=== PATIENT | female | born 1990 | race Hispanic/Latino ===

== ENCOUNTER 2017-04-21 22:58 | Emergency (ER) | payer OTHER ==
[2017-04-21 23:29] LABS: ABSOLUTE BASOPHIL COUNT 0.1 /CUMM (0.0-0.2); ABSOLUTE EOSINOPHIL COUNT 0.1 /CUMM (0.0-0.7); ABSOLUTE GRANULOCYTE CT 10.5 /CUMM (1.4-6.5); ABSOLUTE LYMPH COUNT 2.9 /CUMM (1.2-3.4); ABSOLUTE MONOCYTE COUNT 0.7 /CUMM (0.10-0.60); BASOPHIL % 0.4 % (0.0-2.0); EOSINOPHIL % 0.5 % (0-5); GRANULOCYTE % 73.7 % (42.2-75.2); HEMATOCRIT 33.1 % (37-47); MEAN CORPUSCULAR HGB 26.3 PG (27.0-31.0); MEAN CORPUSCULAR HGB CONC 32.8 G/DL (33.0-37.0); MEAN CORPUSCULAR VOLUME 80.3 FL (81.0-99.0); MEAN PLATELET VOLUME 9.3 FL (7.4-10.4); PLATELET COUNT 298 /CUMM (130-400); RBC DISTRIBUTION WIDTH 15.4 % (11.5-14.5); RED BLOOD CELL CT 4.12 /CUMM (4.20-5.40); WHITE BLOOD CELL COUNT 14.3 /CUMM (4.8-10.8)
--- NOTE | 2017-04-22 02:07 | ED CARDIAC/CP/PALPITATIONS ---
History of Present Illness General Chief Complaint: General Adult Stated Complaint: PT IS CHEST AND THROAT PAIN Source: patient Exam Limitations: no limitations Vital Signs & Intake/Output Vital Signs & Intake/Output Vital Signs Date Time Temp Pulse Resp B/P B/P Pulse O2 O2 Flow FiO2 Mean Ox Delivery Rate 04/22 0310 98.6 82 20 115/81 100 Room Air 04/22 0309 98 Room Air 04/21 2323 98.8 94 16 112/75 99 Room Air ED Intake and Output 04/22 0000 04/21 1200 Intake Total Output Total Balance Patient 170 lb Weight Weight Estimated Measurement Method Allergies Coded Allergies: No Known Allergies (04/21/17) Triage Note: 26 F WITH 2 DAYS OF GASTRIC BURNING PAIN INTO STERNUM AREA, DEEP AND SHARP IN NATURE. EKG COMPLETED IN [place], NORMAL SINUS WITHOUT ECTOPY. LABS DRAWN AND SENT (BLUE SST LAV PINK). PT REPORTS SHE IS SUPPOSED TO HAVE COLONOSCOPY AND ENDOSCOPY FOR SYMPTOMS AND ?IBS. ALSO REPORTS SHE TOOK A PREG TEST LAST WEEK AND POSITIVE. LAST MENSES SOMETIME IN DECEMBER. Triage Nurses Notes Reviewed? yes : Yes Patient currently breastfeeds: No HPI: 31 yo F presents to the ED complaining for chest pains going on for 2 days. She describes the pain as tight, pressure like, non radiating, intermittent in nature and 6/10 in severity. She denies any aggravating factors and lying down makes her feel better. She also mentions some difficulty breathing, decrease in appetite, intermittent nausea and an episode of vomitting earlier today. (SILVIANO FERNÁNDEZ MD) Past History Travel History Traveled to [place] past 21 day No Medical History Any Pertinent Medical History? see below for history Neurological: NONE EENT: NONE Cardiovascular: NONE Respiratory: NONE Gastrointestinal: irritable bowel syndrome Hepatic: NONE Renal: NONE Musculoskeletal: NONE Psychiatric: NONE Endocrine: NONE Surgical History Surgical History: non-contributory Psychosocial History What is your primary language Bulgarian Tobacco Use: Never used ETOH Use: denies use Family History Hx Contributory? No (SILVIANO FERNÁNDEZ MD) Review of Systems Review of Systems Constitutional: Reports: no symptoms. Respiratory: Reports: short of breath. Cardiovascular: Reports: chest pain. GI: Reports: abdominal pain, constipation, diarrhea. Musculoskeletal: Reports: no symptoms. (SILVIANO FERNÁNDEZ MD) Physical Exam Physical Exam General Appearance: well developed/nourished, mild distress Head: atraumatic, normal appearance Eyes: Bilateral: normal appearance. Respiratory: normal breath sounds, chest wall tenderness Cardiovascular: regular rate/rhythm Gastrointestinal: tenderness Core Measures ACS in differential dx? No Severe Sepsis Present: No Septic Shock Present: No (SILVIANO FERNÁNDEZ MD) Progress Differential Diagnosis: musculoskeletal pain Plan of Care: Orders Procedure Date/time Status Add-on Test (ER Only) 04/22 0129 Active TROPONIN LEVEL 04/21 232 Complete HUMAN BETA HCG TITRE 04/21 232 Complete COMPREHENSIVE METABOLIC PANEL 04/21 232 Complete CBC WITHOUT DIFFERENTIAL 04/21 2320 Complete EKG 04/21 2311 Active Laboratory Tests 04/21/17 2320: Anion Gap 12, Estimated GFR > 60, BUN/Creatinine Ratio 15.7, Glucose 98, Calcium 9.3, Total Bilirubin 0.5, AST 18, ALT 41, Alkaline Phosphatase 63, Troponin I < 0.01, Total Protein 7.1, Albumin 4.2, Globulin 2.9, Albumin/Globulin Ratio 1.4, Beta HCG, Quant 3840.6, CBC w Diff NO MAN DIFF REQ, RBC 4.12 L, MCV 80.3 L, MCH 26.3 L, RDW 15.4 H, MPV 9.3, Gran % 73.7, Lymphocytes % 20.3 L, Monocytes % 5.1, Eosinophils % 0.5, Basophils % 0.4, Absolute Granulocytes 10.5 H, Absolute Lymphocytes 2.9, Absolute Monocytes 0.7 H, Absolute Eosinophils 0.1, Absolute Basophils 0.1, PUBS MCHC 32.8 L Initial ED EKG: normal axis (SILVIANO FERNÁNDEZ MD) Departure Departure Disposition: HOME OR SELF CARE Condition: Stable Clinical Impression Primary Impression: Chest wall tenderness Referrals: UGO NUNEZ,JONH Alfaro (PCP/Family) Departure Forms: Customer Survey General Discharge Information (SILVIANO FERNÁNDEZ MD) PA/HEAD BAKER Co-Sign Statement Statement: ED Attending supervision documentation- [] I saw and evaluated the patient. I have also reviewed all the pertinent lab results and diagnostic results. I agree with the findings and the plan of care as documented in the PA's/HEAD BAKER's documentation. [x] I have reviewed the ED Record and agree with the PA's/HEAD BAKER's documentation. [] Additions or exceptions (if any) to the PAs/HEAD BAKER's note and plan are summarized below: [] (KARON NUNEZ,CHRISTOPHER Alfaro) Critical Care Note Critical Care Note Critical Care Time: non-applicable (JOLENE NUNEZ,SILVIANO)
[2017-04-22 03:10] VITALS: BP 115/81
== END 2017-04-22 03:12 ==
LOC: ERH 22:58
PROVIDERS: Emergency Medicine
DX: R07.89 Other chest pain (principal)
CPT/HCPCS: 93005; 93010